=== PATIENT | female | born 1985 | race Caucasian/White ===

== ENCOUNTER 2017-02-09 17:27 | Emergency (ER) | payer MEDICAID ==
[~2017-02-09] VITALS: Ht 165.1 cm; Wt 70.0 kg
[2017-02-09 17:52] VITALS: BP 131/73
== END 2017-02-09 19:48 | disposition home or self-care (01) ==
LOC: ER 18:05
DX: F29 Unspecified psychosis not due to a substance or known physiological condition (principal)
CPT/HCPCS: 99284

== ENCOUNTER 2018-04-18 18:27 | Emergency (ER) | payer MEDICAID ==
[~2018-04-18] VITALS: Ht 172.7 cm; Wt 56.0 kg
[2018-04-18 18:34] VITALS: BP 117/77
[2018-04-18] MEDS ORDERED: CEPHALEXIN 250MG CAPSULE PO ONE (19:00)
== END 2018-04-18 19:06 | disposition home or self-care (01) ==
LOC: ER 18:27
DX: L84 Corns and callosities (principal); L03.116 Cellulitis of left lower limb; L03.115 Cellulitis of right lower limb; F17.210 Nicotine dependence, cigarettes, uncomplicated
CPT/HCPCS: 99283